=== PATIENT | female | born 1965 | race Two or more races ===

== ENCOUNTER 2024-10-21 05:35 | Emergency (ER) | payer OTHER, MEDICAID, SELFPAY ==
[2024-10-21 05:36] VITALS: BMI 30.9
[2024-10-21 05:47] VITALS: BP 126/84; PULSE 111; RESP 19; TEMP 37.3; O2SAT 96
--- NOTE | 2024-10-21 06:19 | XR_ITS ---
Examination: Abdomen sonogram, Limited Date and time of exam: October 21, 2024 0722 hrs. Indications: Onset upper abdominal pain and vomiting beginning 6 hours ago Technique: Real-time tom scale transabdominal sonographic images of the upper abdomen obtained. Findings: Absent gallbladder Common bile duct 0.8 cm no stones Pancreatic head 2.9 cm Liver 20.3 cm fatty infiltration no focal liver lesions Normal hepatopedal portal venous flow Patent IVC Impression: Absent gallbladder No common bile stones Hepatomegaly with fatty liver
--- NOTE | 2024-10-21 06:19 | PD.EDRME ---
Rapid Medical Screening Exam RME Arrival date/time: 10/21/24 05:35 59-year-old female presents to the emergency department for complaints of epigastric abdominal pain Chief Complaint: Abdominal Pain Time Seen by Provider: 10/21/24 06:12 Vital signs: Vital Signs Temperature 99.2 F 10/21/24 05:47 Pulse Rate 111 H 10/21/24 05:47 Respiratory Rate 19 10/21/24 05:47 Blood Pressure 126/84 10/21/24 05:47 Pulse Oximetry (%) 96 10/21/24 05:47 Oxygen Delivery Method Room Air 10/21/24 05:47
[2024-10-21] MEDS: LIDOCAINE VISCOUS 2% 15 ML UDC PO (06:34)
[2024-10-21] MEDS: FAMOTIDINE 20 MG TABLET PO (06:34)
[2024-10-21] MEDS: MG HYD/AL HYD/SIME (Maalox Reg) SUSP 30 ML UDC PO (06:34)
[2024-10-21 07:14] LABS: Basophils % (Auto) 0 % (0-2.5); Eosinophils # (Auto) 0.2 Thou/mm3 (0.0-0.5); Eosinophils % (Auto) 1 % (0-10); Hemoglobin 15.7 g/dL (12.0-16.0); Immature Granulocytes % (Auto) 1 % (0-0); Lymphocytes # (Auto) 0.4 Thou/mm3 (1.0-4.8); Lymphocytes % (Auto) 3 % (10-50); Mean Corpuscular HGB Conc 34.9 g/dl (31.0-37.0); Mean Corpuscular Hemoglobin 31.8 pg (25.0-35.0); Mean Corpuscular Volume 91 fL (80-100); Monocytes # (Auto) 0.7 Thou/mm3 (0.0-0.8); Monocytes % (Auto) 5 % (0-12); Neutrophils # (Auto) 11.8 Thou/mm3 (1.8-7.7); Neutrophils % (Auto) 89 % (37-80); Nucleated Red Blood Cell % 0 /100 WBC (0); Platelet Count 225 Thou/mm3 (140-440); RDW Standard Deviation 44.4 fL (36.4-46.3); Red Blood Count 4.94 Miln/mm3 (4.00-5.20); White Blood Count 13.2 Thou/mm3 (3.6-11.0)
[2024-10-21 07:32] LABS: Alanine Aminotransferase 29 U/L (10-49); Albumin, Serum 4.4 gm/dL (3.4-4.8); Albumin/Globulin Ratio 1.5 (1.2-2.2); Alkaline Phosphatase 96 U/L (46-116); Anion Gap 12 (7-16); Aspartate Amino Transferase 23 U/L (0-34); BUN/Creatinine Ratio 27 Ratio (12-20); Blood Urea Nitrogen 24 mg/dL (9-23); Calcium 9.2 mg/dL (8.3-10.6); Calcium (Corrected) 9.2 mg/dL (8.5-10.1); Carbon Dioxide 24.3 mMol/L (20.0-31.0); Chloride 103 mMol/L (98-107); Creatinine (Component) 0.9 mg/dL (0.6-1.3); Estimated Creatinine Clearance 67.9 mL/min (>60); Glucose 257 mg/dL (74-106); Lipase 46 U/L (12-53); Osmolality,Calculated 290 (275-295); Potassium 4.2 mMol/L (3.4-5.1); Sodium 139 mMol/L (136-145); Total Protein 7.4 gm/dL (5.7-8.2); Troponin I < 0.020 ng/mL (0.0-0.045); eGFR > 60 See Note
[2024-10-21 07:50] VITALS: BP 117/86; PULSE 96; RESP 18; TEMP 37; O2SAT 96
--- NOTE | 2024-10-21 08:00 | PD.EDABDPN ---
ED Abdominal Pain RME/HPI General Chief Complaint: Abdominal Pain Stated complaint: ABD PAIN, N/V AND DIARRHEA Time seen by provider: 10/21/24 06:12 Arrival date/time: 10/21/24 05:35 RME / HPI RME / HPI narrative: 10/21/24 05:35 59-year-old female presents to the emergency department for complaints of epigastric abdominal pain DR. NGUYEN MAIN ED EVALUATION: 59 year old female presents to the Emergency Department with complaints of epigastric abdominal pain with associated nausea, vomiting, and diarrhea. Patient states she has generalized weakness after vomiting and diarrhea. She states she mainly came because of her abdominal pain but now after some medications here she feels better and would like to go home. Patient also reported her blood glucose to be 250. PMHx: Hypertension, diabetes, and GERD. Right inferior parathyroidectomy by Dr. Hernandez, 08/10/21. Social Hx: No tobacco, alcohol, or substance use. Related Data Home Medications ?Medication ?Instructions ?Recorded ?Confirmed gabapentin 100 mg capsule 100 mg PO BID 08/09/21 08/10/21 lisinopril 10 mg tablet 10 mg PO QDAY 08/09/21 08/10/21 metformin 1,000 mg tablet 1,000 mg PO BID 08/09/21 08/10/21 omeprazole 40 mg capsule,delayed 40 mg PO QDAY 08/09/21 08/10/21 release Previous Rx's ?Medication ?Instructions ?Recorded docusate sodium 100 mg capsule 100 mg PO BID #40 caps 08/10/21 (Colace) hydrocodone 5 mg-acetaminophen 325 1 tab PO Q6H PRN pain (scale score 08/10/21 mg tablet 7-10) #15 tabs ibuprofen 600 mg tablet 600 mg PO Q8H PRN pain (scale 08/10/21 score 4-6) #15 tabs Allergies Allergy/AdvReac Type Severity Reaction Status Date / Time codeine Allergy Unknown Nausea/Vomi Verified 08/10/21 07:49 tiing Review of Systems Review of Systems Systems Reviewed: All systems reviewed, normal except as documented Past Medical History Past Medical History NEUROLOGIC: Positive Gama's Palsy (LEFT SIDE OF FACE 2012) CARDIAC: Positive Cardiac Disorders, Hypercholesterolemia (STOP 2018), Hypertension (TAKES MED) and Varicose Veins (RIGHT LEG WORSE THAN LEFT NO SURG) GASTROINTESTINAL: Positive Gastrointestinal Disorders, Gall Bladder Disease (OPEN SURG) and Gastroesophageal Reflux Disease GENITOURINARY: Positive Genitourinary Disorders and 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) REPRODUCTIVE: Positive Previous Pregnancies (X5) MUSCULOSKELETAL: Positive Musculoskeletal Disorders and Arthritis ENDOCRINE: Positive Endocrine Disorders (parathyroid adenoma) and Diabetes Mellitus Type 2 (TAKES PO MED) PSYCHO/SOCIAL: Positive Depression and Anxiety Family History FAMILY HISTORY: Positive Family Cardiac Disorders (FATHER (OR,HTN)MOTHER,BROTHER,SISTER (HTN)), Family Gastrointestinal Problems (SISTER (GALL BLADDER)) and Family Surgery (MOTHER,SISTERS,BROTHER) Surgical History SURGICAL: Positive Endocrine Surgery, Thyroidectomy, Abdominal Surgery, Tubal Ligation and Section Social History SMOKING STATUS: Never smoker SUBSTANCE USE: does not use ALCOHOL: Never ED Exam Narrative Physical exam: GENERAL APPEARANCE: alert and oriented x 4, well-developed, well-nourished, no acute distress VITALS: All vitals were reviewed and the pulse ox is 96% on room air, which is normal according to my interpretation. HEENT: Normocephalic, atraumatic; pupils equal, round, reactive to light; EOMI; mucous membranes pink, moist; oropharynx clear NECK: Supple LUNGS: CTABL; no wheezes, no rales, no rhonchi HEART: Regular rate, regular rhythm; normal S1, S2; no murmurs ABDOMEN: non distended; normal BS; soft, no tenderness, no guarding, no rebound; no masses, no organomegaly, no hernia BACK: no CVA tenderness EXTREMITIES: atraumatic; no edema NEUROLOGIC: awake; alert and oriented x4; cranial nerves II-XII grossly intact; no focal sensory or motor deficits PSYCHIATRIC: appropriate mood and affect SKIN: warm, dry, normal color; no rashes Course Quality Measures none Orders Category Date Time Status US gall bladder Stat Exams 10/21/24 06:19 Completed CBC Stat Lab 10/21/24 06:35 Completed Comprehensive Metabolic Panel Stat Lab 10/21/24 06:35 Completed Lipase Stat Lab 10/21/24 06:35 Completed Troponin I Stat Lab 10/21/24 06:35 Completed Famotidine [Pepcid] Med 10/21/24 06:19 Discontinued 20 mg PO X1 ONE Lidocaine 2% Viscous [Xylocaine 2% Viscous] Med 10/21/24 06:19 Discontinued 15 ml PO X1 ONE mg Hyd/Al Hyd/Joesph Susp [Maalox Susp] Med 10/21/24 06:19 Discontinued 30 ml PO X1 ONE Vital Signs Vital signs: Vital Signs Temperature 99.2 F 10/21/24 05:47 Pulse Rate 111 H 10/21/24 05:47 Respiratory Rate 19 10/21/24 05:47 Blood Pressure 126/84 10/21/24 05:47 Pulse Oximetry (%) 96 10/21/24 05:47 Oxygen Delivery Method Room Air 10/21/24 05:47 Abdominal Pain MDM MDM Narrative MDM Narrative:: Ela Elmore am scribing for and in the presence of Dr. Nguyen. Patient data External records reviewed:: [facility] previous records (Reviewed Right inferior parathyroidectomy surgery note by Dr. Hernandez, dated 08/10/21.) Clinical information provided by:: patient Social determinants that could affect healthcare access:: none Patient has the following chronic illnesses:: Hypertension, diabetes, and GERD. Right inferior parathyroidectomy by Dr. Hernandez, 08/10/21. How is presenting disease/condition affected by chronic disease/condition?: exacerbated by Evaluation data The following diagnostics were reviewed and interpreted by me:: lab results and radiology exam(s) Lab and/or radiology exams considered but not ordered:: none Interpretation Summary: Procedure(s): US gall bladder Accession Number(s): [id number] cc: Jessica (GARRET),Leonel COMBS; Mason Campoverde MD; Colette Velasquez~ Examination: Abdomen sonogram, Limited Date and time of exam: October 21, 2024 0722 hrs. Indications: Onset upper abdominal pain and vomiting beginning 6 hours ago Technique: Real-time tom scale transabdominal sonographic images of the upper abdomen obtained. Findings: Absent gallbladder Common bile duct 0.8 cm no stones Pancreatic head 2.9 cm Liver 20.3 cm fatty infiltration no focal liver lesions Normal hepatopedal portal venous flow Patent IVC Impression: Absent gallbladder No common bile stones Hepatomegaly with fatty liver Dictated By: Mason Campoverde MD Medications / Prescriptions Medications or Prescriptions considered but not ordered:: none Medication administrations:: Medication Administration History Discontinued Medications Al Hydrox/Mg Hydrox/Simethicone (Mg Hyd/Al Hyd/Joesph (Maalox Reg) Susp 30 Ml Udc) 30 ml PO X1 ONE Stop: 10/21/24 06:20 Last Admin: 10/21/24 06:34 Dose: 30 ml Documented By: RADHA Famotidine (Famotidine 20 Mg Tablet) 20 mg PO X1 ONE Stop: 10/21/24 06:20 Last Admin: 10/21/24 06:34 Dose: 20 mg Documented By: RADHA Lidocaine HCl (Lidocaine Viscous 2% 15 Ml Udc) 15 ml PO X1 ONE Stop: 10/21/24 06:20 Last Admin: 10/21/24 06:34 Dose: 15 ml Documented By: RADHA see above Consultations Consultation(s) initiated? (list below): No Diagnosis Differential diagnosis abdominal pain: abdominal pain and other (gastritis, gallstones) Most likely diagnosis given after review of the tests above:: Epigastric abdominal pain Vomiting Admission Indicated Admission indicated?: not indicated Admission Request Was there a request for admission?: No Disposition Plan Disposition Plan: Discharge Discharge Attestation Discharge Attestation: The patient and all family members were given an opportunity to ask questions and understood the discharge instructions. Discharge instructions specifically effects, indications for sooner follow up or return to the emergency department, and the expected course of current diagnosis. Patient condition: Stable Discharge Plan Plan Patient Disposition: HOME (Self Care) Prescriptions/Referrals Prescriptions/Med Rec: No Action omeprazole 40 mg Capsule,Delayed Release(Dr/Ec) 40 mg PO QDAY metformin 1,000 mg Tablet 1,000 mg PO BID lisinopril 10 mg Tablet 10 mg PO QDAY gabapentin 100 mg Capsule 100 mg PO BID hydrocodone-acetaminophen 5-325 mg tablet 1 tab PO Q6H MDD 4 PRN (Reason: pain (scale score 7-10)) Qty: 15 0RF docusate sodium [Colace] 100 mg capsule 100 mg PO BID Qty: 40 0RF ibuprofen 600 mg tablet 600 mg PO Q8H PRN (Reason: pain (scale score 4-6)) Qty: 15 0RF Referrals: Colette Velasquez FNP [Primary Care Provider] - In 1 week Problem List Clinical Impression: Epigastric abdominal pain, Vomiting Patient/Caregiver Discharge Instructions Education Materials: ED Vomiting (Adult) Print Language: Romansh Stand Alone Forms: Shellie Award Info., Patient Portal Info Letter
== END 2024-10-21 08:32 | disposition home or self-care (01) ==
PROVIDERS: Nurse Practitioner Primary Care; Emergency Provider Emergency Medicine; PCP Registered Nurse
DX: R10.13 Epigastric pain (principal); R11.2 Nausea with vomiting, unspecified; K76.0 Fatty (change of) liver, not elsewhere classified; I10 Essential (primary) hypertension; E11.9 Type 2 diabetes mellitus without complications; K21.9 Gastro-esophageal reflux disease without esophagitis; Z79.84 Long term (current) use of oral hypoglycemic drugs; Z79.899 Other long term (current) drug therapy
CPT/HCPCS: 36415; 76705; 80053; 81025; 83690; 84484; 85025; 99284; J3490; A9270

== ENCOUNTER → 2025-01-19 | Outpatient (CLI) | payer BC, MEDICAID, SELFPAY ==
--- NOTE | 2025-01-19 13:00 | XR_ITS ---
Examination: Bone densitometry Date and time of exam:January 19, 2025 1317 hours INDICATIONS: Menopause age 50 vitamin D 2 years, diabetic Technique: Lumbar spine and hip total bone mineralization values of an calculated. Peak reference and age match control results have been displayed. Findings: Lumbar spine total bone mineralization is1.244 gm/cm2. This is 1.8 standard deviations above peak reference. This is 3.3 standard deviations above age-matched controls. Hip total bone mineralization is 0.937 gm/cm2 This is 0.2 standard deviations below peak reference. This is 0.8 standard deviations above age-matched controls Impression: There is normal mineralization based on lumbar spine measurements. There is osteopenia based on hip measurements Lumbar mineralization is increased 1.0% compared with September 15, 2020 Hip mineralization is increased 8.7% compared with September 15, 2020
== END | disposition home or self-care (01) ==
PROVIDERS: PCP Internal Medicine; Referring Provider Internal Medicine; Visit Provider Internal Medicine
DX: M85.89 Other specified disorders of bone density and structure, multiple sites (principal)
CPT/HCPCS: 77080